=== PATIENT | female | born 1970 | race Caucasian/White ===

== ENCOUNTER 2020-10-22 11:08 | Emergency (ER) | payer BC, SELFPAY ==
--- NOTE | ~2020-10-22 | XR_ITS ---
EXAMINATION: XR chest 2V DATE: 10/22/2020 11:48 INDICATION: Cough and shortness of breath TECHNIQUE: AP and lateral views of the chest are obtained. COMPARISON: 12/25/2015 FINDINGS: The lungs are free of acute opacities. There is no pleural effusion or pneumothorax. The ca rdiomediastinal silhouette is normal. There is moderate thoracic spondylosis. Cholecystectomy clips a re noted. IMPRESSION: 1. No acute cardiopulmonary abnormality. Reviewed, dictated and finalized at location A. TE CLERK FOR BASIC TRAFFIC
[2020-10-22 11:32] VITALS: BP 134/81; PULSE 102; RESP 18; TEMP 37.3; O2SAT 100
[2020-10-22 11:37] VITALS: BP 134/81; PULSE 102; RESP 18; TEMP 37.3; O2SAT 100
--- NOTE | 2020-10-22 12:01 | ED.URI ---
HPI - URI/Sore Throat General Chief Complaint: Upper Respiratory Infection Stated Complaint: Congestion,Cough Time Seen by Provider: 10/22/20 11:40 Source: patient and RN notes reviewed Mode of arrival: ambulatory Limitations: no limitations History of Present Illness HPI Narrative: Patient presents today complaining of a 2-day history of headache, fatigue, dry cough, weakness, shortness of breath, chest tightness, rhinorrhea, sweats. Symptoms have worsened today. Daughter was diagnosed with COVID-19 4 days ago. Denies any history of asthma or COPD. Denies fever. She is a non-smoker. She has tried no medication for symptoms prior to arrival. She is an insulin-dependent diabetic. MD elicited complaint: cough Related Data Home Medications Medication Instructions Recorded Confirmed insulin aspart U-100 unit SUBCUT 10/22/20 insulin detemir U-100 [Levemir unit SUBCUT 10/22/20 FlexTouch U-100 Insuln] semaglutide [Ozempic] mg SUBCUT 10/22/20 Allergies Allergy/AdvReac Type Severity Reaction Status Date / Time No Known Allergies Allergy Unverified 04/14/15 06:12 Review of Systems Review of Systems: Narrative: CONSTITUTIONAL: Denies body aches, fever, chills. + Fatigue, weakness, sweats EYES: Denies visual changes, redness, or discharge. ENT: Denies congestion, sore throat, or otalgia. + Rhinorrhea CARDIOVASCULAR: Denies chest pain, palpitations, or edema. RESPIRATORY: + Dry cough, shortness of breath, chest tightness GASTROINTESTINAL: Denies abdominal pain, nausea, vomiting, or diarrhea. GENITOURINARY: Denies dysuria or hematuria. SKIN: Denies rash, itching, or wounds. MUSCULOSKELETAL: Denies back pain, joint pain, or myalgia. NEUROLOGIC: Denies numbness, tingling, or weakness. + Headache PSYCH: Denies depression or anxiety. [facility] Past Medical History Medical History (Updated 10/22/20 @ 12:51 by Minerva Hinton, CYBER TRANSPORT SYSTEMS SPECIALIST, ) Diabetes Comments At time of signature, I have reviewed and agree with nursing past medical, surgical, social and family history unless otherwise noted. Please see nursing chart for further information. There is no relevant family history pertinent to the presenting complaint Exam Narrative: Exam Narrative: GENERAL: Mildly ill-appearing, well-nourished, and in no acute distress. HEAD: Normocephalic, atraumatic. EYES: EOMI. No redness or drainage. Conjunctivae normal. ENT: Mucous membranes pink and moist. Nares clear. + rhinorrhea. TMs normal bilaterally. Throat normal. Uvula midline. NECK: Normal AROM. Supple. No lymphadenopathy. CHEST: No respiratory distress. Moderately decreased aeration throughout, as patient cannot take a deep breath, otherwise clear. HEART: Regular rate and rhythm. No murmur appreciated. Normal peripheral pulses. EXTREMITIES: Normal range of motion. No edema. SKIN: Warm, dry, no rash. Capillary refill normal. Normal skin turgor. NEURO: No focal deficits. Alert and oriented x3. Gait steady. PSYCH: Normal affect. No signs of depression or anxiety. Course Course Emergency Course: 1248- Increased aeration after Duoneb. Patient states she can take a bit of a deeper breath. Discussed x-ray results and plan. Vital Signs Vital signs: Vital Signs Temperature 99.2 F 10/22/20 11:32 Pulse Rate 102 H 10/22/20 11:32 Respiratory Rate 18 10/22/20 11:32 Blood Pressure 134/81 10/22/20 11:32 Pulse Oximetry 100 10/22/20 11:32 Temperature 99.2 F 10/22/20 11:37 Pulse Rate 102 H 10/22/20 11:37 Respiratory Rate 18 10/22/20 11:37 Blood Pressure 134/81 10/22/20 11:37 Pulse Oximetry 100 10/22/20 11:37 Reviewed. Pt has been instructed to follow up with her PCP regarding her elevated blood pressure today. MDM - URI/Sore Throat Differential Diagnosis Differential diagnosis: Likely upper respiratory infection, sinusitis, viral infection, bronchitis, pharyngitis and other (COVID-19, pneumonia) Lab Data Attestation: I reviewed the patient'
[2020-10-22] MEDS: ALBUTEROL SULFATE NEB 2.5 MG/3 ML INH INHALATION (12:07)
[2020-10-22] MEDS: IPRATROPIUM BR 0.02% INH SOLN 0.5 MG/2.5 ML VIAL INHALATION (12:07)
[2020-10-23 20:12] LABS: SARS-CoV-2 RNA PCR Negative
== END 2020-10-22 12:56 | disposition home or self-care (01) ==
PROVIDERS: Emergency Provider Nurse Practitioner; PCP Family Medicine
DX: J40 Bronchitis, not specified as acute or chronic (principal); J06.9 Acute upper respiratory infection, unspecified; Z20.822 Contact with and (suspected) exposure to COVID-19; E11.9 Type 2 diabetes mellitus without complications; Z79.4 Long term (current) use of insulin
CPT/HCPCS: 71046; 87426; 94640; 99213; C9803; G0463; U0003; U0005

== ENCOUNTER 2021-07-14 03:04 | Day surgery (SDC) | payer BC, SELFPAY ==
[2021-06-29 13:47] VITALS: BMI 25.7
[2021-07-14 12:30] VITALS: BP 102/65; PULSE 100; RESP 18; TEMP 36.6; O2SAT 100
[2021-07-14] MEDS: LACTATED RINGERS 1,000 ML 150 ML IV CONT (12:43)
--- NOTE | 2021-07-14 13:01 | P.PNAN_ITS ---
Anes - Initial Pre Proc Eval Procedure: Operation Date: 07/14/21 13:45 Proposed Procedures p Colonoscopy - Jamil Stephens MD Date/Time: 07/14/21 13:01 Surgeon: Jamil Stephens MD Pre Op Diagnosis: diarrhea Patient Data Age: 51 Gender: F Height: 1.6 m Weight: 64.2 kg Last Vital Signs Temp 36.6 C 07/14/21 12:30 Pulse 100 07/14/21 12:30 Resp 18 07/14/21 12:30 BP 102/65 07/14/21 12:30 Pulse Ox 100 07/14/21 12:30 Allergies Allergy/AdvReac Type Severity Reaction Status Date / Time No Known Allergies Allergy Verified 07/14/21 12:24 Home Medications Medication Instructions Recorded Confirmed Type albuterol sulfate [ProAir HFA] 2 puff INHALATION Q4-6H PRN #18 gm 10/22/20 07/14/21 Rx semaglutide [Ozempic] 1 mg SUBCUT WEEKLY 10/22/20 07/14/21 History cholestyramine (with sugar) 4 gram 4 g PO DAILY #378 g 06/09/21 07/14/21 Rx oral powder alprazolam 0.25 mg PO DAILY PRN 06/29/21 07/14/21 History Patient hx anesthesia problems: none Family hx anesthesia problems: none Results Review: All pre-operative results and documents have been reviewed as part of the pre-operative evaluation. [facility] Past Medical History Medical History (Updated 07/14/21 @ 13:03 by Gergory Blackwell MD) Anxiety Asthma Depression Diabetes Social History Social History Smoking status: Never smoker Substance use: never Living arrangements: alone Spiritual care concerns: No Anes - Eval Final PreProcedure Day of Procedure 07/14/21 13:01 Patient weight: normal Heart: regular rate and rhythm Lungs: clear to auscultation and normal air movement Airway: Mallampati scale class II Neurological: alert and oriented Last oral intake: >/= 8 hours ASA classification: III Emergent: no Anesthetic plan: proceed Anesthesia type and monitoring: general GIVS Results Review: All pre-operative results and documents have been reviewed as part of the pre-operative evaluation. Informed Consent: The patient's anesthetic plan and its attendant risks and benefits were discussed with the patient/family/POA. Questions were solicited and answers provided to the satisfaction of the patient/family/POA.
--- NOTE | 2021-07-14 13:35 | PM.HPGS ---
History of Present Illness History of Present Illness Consent: Risks, benefits, and alternatives have been discussed and questions answered. Patient agrees to proceed with procedure. Chief complaint: diarrhea Narrative: Rowena Ramos is a 51 year old female with post-prandial diarrhea recently started on questran with some relief, never had colonoscopy. Review of Systems Constitutional: Constitutional: Denies headache(s) and Denies weakness Eyes: Eyes: Denies blurry vision ENT: Reports Normal hearing present, Denies headache(s) and Denies neck pain Cardiovascular: Cardiovascular: Denies chest pain and Denies dyspnea Respiratory: Respiratory: Denies dyspnea Gastrointestinal: Gastrointestinal: Reports no additional gastrointestinal complaints Genitourinary: Genitourinary: Denies dysuria Musculoskeletal: Musculoskeletal: Denies neck pain Integumentary/Breasts: Skin/Breast: Denies dry skin Neurologic: Reports Normal hearing present, Denies headache(s) and Denies weakness Psychiatric: Psychiatric: Denies anxiety Endocrine: Endocrine: Denies change in body appearance Hematologic/Lymphatic: Hematologic/Lymphatic: Denies easy bleeding Allergic/Immunologic: Allergic/Immunologic: Denies urticaria PMF Past Medical History Medical History (Updated 07/14/21 @ 13:35 by Jamil Stephens MD) Anxiety Asthma Depression Diabetes Diarrhea Social History Social History Smoking status: Never smoker Substance use: never Living arrangements: alone Spiritual care concerns: No Meds Home Medications and Allergies Home Medications Medication Instructions Recorded Confirmed Type albuterol sulfate [ProAir HFA] 2 puff INHALATION Q4-6H PRN #18 gm 10/22/20 07/14/21 Rx semaglutide [Ozempic] 1 mg SUBCUT WEEKLY 10/22/20 07/14/21 History cholestyramine (with sugar) 4 gram 4 g PO DAILY #378 g 06/09/21 07/14/21 Rx oral powder alprazolam 0.25 mg PO DAILY PRN 06/29/21 07/14/21 History Allergies Allergy/AdvReac Type Severity Reaction Status Date / Time No Known Allergies Allergy Verified 07/14/21 12:24 Vital Signs Vital Signs - 24 hr 07/14/21 12:30 Temperature 97.8 F Pulse Rate 100 Respiratory Rate 18 Blood Pressure 102/65 Pulse Oximetry 100 Exam Const: General: comfortable and no acute distress HENMT: General nose exam: Normal nares present Eyes: General: appearance normal, both eyes and all related structures Neck: Neck: no JVD Resp: Auscultation: clear to auscultation bilaterally Cardio: Rate: regular rate Rhythm: regular rhythm GI: Inspection: non-distended GI Palp: Yes Soft to palpation Skin: General skin exam: normal color Neuro: General: gait normal Speech: normal speech Extrem: General: normal to inspection Psych: Mental Status: mental status grossly normal Assessment and Plan Assessment and plan (1) Diarrhea: Code(s): R19.7 - Diarrhea, unspecified Status: Acute Assessment and Plan: colonoscopy with random colon bx
[2021-07-14 13:56] VITALS: BP 82/41; PULSE 86; RESP 16; O2SAT 100
[2021-07-14 14:06] VITALS: BP 98/59; PULSE 84; RESP 15; O2SAT 100
[2021-07-14 14:16] VITALS: BP 113/73; PULSE 85; RESP 16; O2SAT 100
== END 2021-07-14 14:36 | disposition home or self-care (01) ==
PROVIDERS: PCP Family Medicine; Visit Provider Internal Medicine Gastroenterology
PROC: 0DJD8ZZ Inspection of Lower Intestinal Tract, Via Natural or Artificial Opening Endoscopic (ICD-10-PCS; CPT 45378; principal; 2021-07-14 13:45)
DX: Z12.11 Encounter for screening for malignant neoplasm of colon (principal); K57.30 Diverticulosis of large intestine without perforation or abscess without bleeding; K64.8 Other hemorrhoids; F41.9 Anxiety disorder, unspecified; J45.909 Unspecified asthma, uncomplicated; E11.9 Type 2 diabetes mellitus without complications; Z79.51 Long term (current) use of inhaled steroids
CPT/HCPCS: 45380; 88305; J2704; J7120

== ENCOUNTER 2022-07-17 09:28 | Observation (INO) | payer BC, SELFPAY ==
[2022-07-17] VITALS (28 sets, daily range): BP systolic 92–156; BP diastolic 62–106; PULSE 87–99; RESP 10–22; TEMP 36.6–36.8; O2SAT 96–100
--- NOTE | ~2022-07-17 | CT_ITS ---
EXAMINATION: CT brain wo con INDICATION: Head injury COMPARISON: None TECHNIQUE: Standard unenhanced head CT. The dose-length product (DLP) was 605.33 mGy-cm. The mA was a djusted according to patient size. Iterative reconstruction technique was employed. FINDINGS: There is no intracranial hemorrhage, acute infarction, or abnormal mass lesion. The ventric les are normal. There is no abnormal mass effect or midline shift. The levin-white matter differentiat ion is normal. The basal cisterns are patent. The orbits are normal. There is mild mucosal thickening of the paranasal sinuses. There is a small left posterior scalp hematoma. IMPRESSION: 1. No acute intracranial abnormality. Reviewed, dictated and finalized at location A. ENGINEERING TEACHER
--- NOTE | ~2022-07-17 | XR_ITS ---
EXAMINATION: XR chest 1V INDICATION: Fall, weakness TECHNIQUE: AP view of the chest is obtained. COMPARISON: 10/22/2020 FINDINGS: The lungs are free of acute opacities. No pleural effusion or pneumothorax. The cardiomedia stinal silhouette is normal. The visualized bones and soft tissues are unremarkable. IMPRESSION: 1. No acute cardiopulmonary abnormality. Reviewed, dictated and finalized at location A. M PRESSER
--- NOTE | ~2022-07-17 | CT_ITS ---
CTA brain carotid EXAMINATION: CTA brain DATE: 07/17/2022 11:03 INDICATION: Left-sided weakness TECHNIQUE: Computed tomographic angiography (CTA) of the head was performed without and with 100 mL O mnipaque-350 intravenous contrast. The dose-length product was 419.37 mGy-cm. Maximum intensity proje ction and volume rendered 3D-reconstructions were created by the technologist on a separate workstati on. Automated exposure control and iterative reconstruction technique were employed. COMPARISON: None. FINDINGS: There is no intracranial hemorrhage, acute infarction, or abnormal mass lesion. The ventricles are no rmal. There is no abnormal mass effect or midline shift. The levin-white matter differentiation is nor mal. The basal cisterns are patent. The orbits are normal. The paranasal sinuses, mastoids and calvar ium are normal. There is no significant stenosis of the basilar artery or posterior cerebral arteries. There is no si gnificant stenosis of the intracranial internal carotid arteries or the anterior or middle cerebral a rteries. The anterior communicating artery and right posterior communicating arteries are normal. The left posterior communicating artery is hypoplastic. There is no aneurysm. IMPRESSION: 1. No acute intracranial abnormality. Unremarkable head CTA. Reviewed, dictated and finalized at location A. WAY YARD ASSISTANT
--- NOTE | ~2022-07-17 | CT_ITS ---
EXAMINATION: CT cervical spine wo con DATE: 07/17/2022 10:32 INDICATION: Head injury TECHNIQUE: Computed tomography (CT) of the cervical spine was performed without intravenous contrast. The dose-length product (DLP) was 179.10 mGy-cm. Automated exposure control and iterative reconstruc tion technique were employed. COMPARISON: None FINDINGS: There is no fracture, dislocation, or subluxation. The vertebral body heights, alignment, a nd intervertebral disc spaces are normal. The paravertebral soft tissues are unremarkable. The odonto id is intact. IMPRESSION: 1. No acute osseous abnormality. Reviewed, dictated and finalized at location A. OLLER
--- NOTE | ~2022-07-17 | MR_ITS ---
EXAMINATION: MR cervical spine wo con DATE: 07/19/2022 17:43 INDICATION: Neurological deficits. Left hemiparesis. TECHNIQUE: Magnetic resonance imaging (MRI) of the cervical spine was performed without intravenous c ontrast. Sequences included sagittal T2-weighted FSE, sagittal T2-weighted FS FSE, sagittal T1-weight ed FSE, axial MERGE, and axial T2-weighted FSE. COMPARISON: CT cervical spine 07/17/2022 FINDINGS: There is 6 degrees dextrocurvature of cervical spine. Vertebral body heights and interverte bral disc heights are normal. The spinal cord signal intensity is normal. The following disc levels a re specifically discussed: C2-C3: The disc does not extend beyond the endplate margin. There is no uncovertebral joint osteoarth ritis. There is mild bilateral facet joint osteoarthritis. There is no neural foraminal stenosis. The re is no central canal stenosis. C3-C4: The disc does not extend beyond the endplate margin. There is mild bilateral uncovertebral mason nt osteoarthritis. There is no facet joint osteoarthritis. There is no neural foraminal stenosis. The re is no central canal stenosis. C4-C5: The disc does not extend beyond the endplate margin. There is mild left uncovertebral joint os teoarthritis. There is no facet joint osteoarthritis. There is no neural foraminal stenosis. There is no central canal stenosis. C5-C6: The disc is bulging. There is mild bilateral uncovertebral joint osteoarthritis. There is mild left facet joint osteoarthritis. There is no neural foraminal stenosis. There is mild central canal stenosis. C6-C7: There is a central extrusion. There is no uncovertebral joint osteoarthritis. There is mild bi lateral facet joint osteoarthritis. There is no neural foraminal stenosis. There is mild central brittany l stenosis. C7-T1: There is a central extrusion. There is no uncovertebral joint osteoarthritis. There is severe bilateral facet joint osteoarthritis. There is mild bilateral neural foraminal stenosis. There is mil d central canal stenosis. IMPRESSION: 1. Mild cervical spondylosis. Reviewed, dictated and finalized at location A. STANT PROFESSOR
--- NOTE | ~2022-07-17 | MR_ITS ---
EXAMINATION: MR brain/brain stem wo/w con DATE: 07/18/2022 10:33 INDICATION: Left hemiparesis. TECHNIQUE: Magnetic resonance imaging (MRI) of the brain and brainstem was performed without and with 13 mL MultiHance intravenous contrast. COMPARISON: Head CT 07/17/2022 FINDINGS: There is no intracranial hemorrhage, acute infarction, or abnormal intracranial mass lesion . The ventricles are normal in size. There is mucosal thickening in the paranasal sinuses. The orbits are normal. The mastoid air cells are normal. IMPRESSION: 1. Normal brain. Reviewed, dictated and finalized at location E. H UP WORKER IMPRESSION: 1. Normal brain.
--- NOTE | 2022-07-17 10:00 | ECG_ITS ---
Measurements Intervals [place] Rate: 87 P: 45 IL: 153 QRS: 10 QRSD: 92 T: 56 QT: 363 QTc: 437 Interpretive Statements SINUS RHYTHM INCOMPLETE RIGHT BUNDLE BRANCH BLOCK LOW QRS VOLTAGE IN PRECORDIAL LEADS BASELINE ARTIFACT- II, III BORDERLINE ECG NO PREVIOUS ECG AVAILABLE FOR COMPARISON Electronically Signed On 07-17-2022 14:55:53 ASSISTANT GUEST SERVICES MANAGER by Pritesh Camacho D.O.
--- NOTE | 2022-07-17 10:08 | ED.FALL ---
HPI - Fall General Chief Complaint: Fall Stated Complaint: GLF HIT HEAD ON WALL LAC TOP OF HEAD Time Seen by Provider: 07/17/22 09:37 History of Present Illness HPI Narrative: 52-year-old female history of diabetes anxiety depression, asthma presents to the emergency room for head injury following a fall. Patient states that she was stepping up a step, she laid with her right foot and was unable to bring her left foot forward to continue stepping upwards. Patient states after missing her step she fell backwards striking the back of her head. Patient denies any LOC or altered mental status. Patient was not ambulatory following the injury. Patient presented to the ER via EMS c-collar in place Related Data Home Medications Medication Instructions Recorded Confirmed semaglutide 0.25 mg or 0.5 mg (2 1 mg subcut WEEKLY 10/22/20 11/12/21 mg/1.5 mL) subcutaneous pen injector (Ozempic) Allergies Allergy/AdvReac Type Severity Reaction Status Date / Time No Known Allergies Allergy Verified 07/17/22 09:45 Review of Systems Review of Systems: CONSTITUTIONAL: Denies fever, chills, or sweats. EYES: Denies visual changes, redness, or discharge. ENT: Denies rhinorrhea, congestion, sore throat, or otalgia. CARDIOVASCULAR: Denies chest pain, palpitations, or edema. RESPIRATORY: Denies cough or dyspnea. GASTROINTESTINAL: Denies abdominal pain, nausea, vomiting, or diarrhea. GENITOURINARY: Denies dysuria or hematuria. SKIN: Denies rash or itching. MUSCULOSKELETAL: Denies back pain, joint pain, or myalgia. NEUROLOGIC: Reports headache PSYCHIATRIC: Reports anxiety PMFSH Past Medical History Medical History Anxiety Asthma Colon cancer screening Depression Diabetes Diabetes mellitus type 1, uncontrolled Diarrhea Dysphagia Gastroparesis Irritable bowel syndrome with diarrhea Neuropathy Uncontrolled diabetes mellitus Social History Social History Smoking status: Never smoker Substance use: never Spiritual care concerns: No Exam Narrative: GENERAL: Well-appearing, well-nourished, no physical limitations, and in no acute distress. HEAD: Normocephalic, scalp laceration EYES: Conjunctivae normal, PERRLA and EOMI. ENT: External nose normal, Nares clear, no rhinorrhea or epistaxis. Mucous membranes moist. Oropharynx without tonsillar hypertrophy exudate or other lesions. External ears normal, bilateral TMs normal bilaterally NECK: Supple. CHEST: Clear to auscultation. No respiratory distress. No wheezes rales or rhonchi. HEART: Regular rate and rhythm. No murmur heard. Normal peripheral pulses. ABDOMEN: Soft, nontender, nondistended, normal active bowel sounds. BACK: No midline cervical tenderness, step-offs, bony abnormality; FROM EXTREMITIES: Normal range of motion. No edema. No clubbing or cyanosis SKIN: Warm, dry, no rash. No noted wounds NEURO: Alert and oriented x3. MAEW. CN's II-XI intact bilaterally. LLE Strength 4/5, LUE Strength 4/5 PSYCH: Cooperative. Normal mood and affect. Course Course Emergency Course: 1045: Discussed case with Dr. Díaz neurologist. She recommends getting a CTA for further examination. Also recommends if patient has a candidate for tPA to transfer or to a stroke center. 1100: Discussed case with Dr. Melendez, neurologist at [facility]. He states patient is not a candidate for tPA. Vital Signs Vital signs: Vital Signs Temperature 36.8 C 07/17/22 09:34 Pulse Rate 90 07/17/22 09:34 Respiratory Rate 18 07/17/22 09:34 Blood Pressure 150/85 H 07/17/22 09:34 Pulse Oximetry 100 07/17/22 09:34 Oxygen Delivery Room Air 07/17/22 09:34 Temperature 36.8 C 07/17/22 09:34 Pulse Rate 94 07/17/22 12:31 Respiratory Rate 17 07/17/22 12:31 Blood Pressure 150/98 H 07/17/22 12:31 Pulse Oximetry 98 07/17/22 12:31 Oxygen Delivery Room Air 07/17/22
[2022-07-17 10:24] LABS: Basophils Absolute Auto 0.1 K/mm3 (0.0-0.1); Eosinophils Absolute Auto 0.2 K/mm3 (0-0.3); Eosinophils Percent Auto 2.8 % (0-4.4); Hematocrit 36.6 % (37.0-47.0); Immature Granulocyte Absolute 0.01 K/mm3 (0.00-0.031); Immature Granulocyte Percent A 0.1 % (0-0.5); Lymphocytes Absolute Auto 1.84 K/mm3 (0.9-3.2); Lymphocytes Percent Auto 27.4 % (18.3-44.2); Mean Corpuscular HGB Conc 32.8 g/dl (32-36); Mean Corpuscular Hemoglobin 29.5 pg (26-34); Mean Corpuscular Volume 89.9 fl (80-100); Mean Platelet Volume 9.3 fl (7.4-10.4); Monocytes Absolute Auto 0.4 K/mm3 (0.1-0.6); Neutrophils Absolute Auto 4.2 K/mm3 (1.3-6.7); Neutrophils Percent Auto 62.7 % (45.5-73.1); Platelet Count Result 233 k/mm3 (150-375); Red Blood Count 4.07 M/mm3 (4.2-5.4); Red Cell Distribution Width 13.4 % (11.5-14.5); White Blood Count 6.7 K/mm3 (4.5-10.0)
[2022-07-17 10:36] LABS: Alanine Aminotransferase 25 U/L (6-35); Albumin Level 4.1 g/dL (3.5-5.1); Alkaline Phosphatase 59 U/L (38-126); Anion Gap 10 mmol/L (8-16); Aspartate Amino Transferase 43 U/L (14-36); Bilirubin,Total 0.5 mg/dL (0.2-1.3); Blood Urea Nitrogen 13 mg/dL (7-17); Calcium 8.7 mg/dL (8.4-10.2); Carbon Dioxide 30 mmol/L (22-30); Chloride 102 mmol/L (98-107); Estimated CRCL calculation 67 ml/min; Estimated Glomerular Filt Rate > 60; Glucose 100 mg/dL (65-110); Potassium 3.8 mmol/L (3.4-5.0); Sodium 142 mmol/L (137-145)
[2022-07-17 10:42] LABS: Prothrombin Time 12.9 Seconds (11.1-14.7)
[2022-07-17 10:47] LABS: Troponin I < 0.012 ng/mL (0.000-0.034)
[2022-07-17 11:53] LABS: Influenza A QL RT-PCR Negative (Negative); Influenza B QL RT-PCR Negative (Negative); SARS-CoV-2 RNA PCR Negative
[2022-07-17] MEDS: SODIUM CHLORIDE 0.9% IV 1,000 ML 125 ML IV CONT (12:11)
[2022-07-17] MEDS: MORPHINE SULFATE (*CRX) 2 MG/ML INJ IV PUSH (12:11)
[2022-07-17] MEDS: ONDANSETRON INJ 4 MG/2 ML VIAL IV PUSH (12:11)
[2022-07-17] MEDS: MORPHINE SULFATE (*CRX) 4 MG/ML INJ IV PUSH (13:54)
--- NOTE | 2022-07-17 14:15 | PM.IMHP ---
H&P: HPI History of Present Illness Date/Time: 07/17/22 14:15 Chief Complaint: Fall. Narrative: This is a 52-year-old female with type 2 diabetes mellitus with peripheral neuropathy who presented to the ED via EMS for evaluation after a fall while trying to walk up a few steps at [facility]. She had difficulties raising her left leg up onto the step as it felt heavy and weak. She then became unbalanced and unfortunately was not near the hand rail and she fell backwards onto the hard floor where she did strike the top of her head. Bystanders called 911 and she was brought in for evaluation and aside from a slightly elevated blood pressure 150/85, her vital signs were normal. Labs and imaging of the CT of the head, cervical spine, and CTA brain angiography were all unremarkable. On exam she had mild left leg drift and ataxia with an NIH stroke scale of 2. Case was discussed with the stroke team at [facility] and tPA was not recommended. She is being admitted to a telemetry for in this setting for close monitoring, further evaluation, and Neurology consultation. Currently she complains of a diffuse headache which has been since the fall. She denies loss of consciousness in the fall though she is uncertain whether not she had prodromal symptoms. She goes on to say that she has had issues with orthostatic hypotension since June 2021 and in fact she was evaluated by Cardiology for this. Workup was reportedly unremarkable and she has been trying to stay more hydrated since that time with less frequent episodes more recently. She denies vertigo, auditory and visual changes, facial droop, dysarthria, and dysphagia. She also denies palpitations, sensations of racing heart, and irregular heartbeat. She denies sustaining injuries in the fall aside from the scalp laceration. She specifically denies neck pain, shoulder pain, hip pain, low back pain, left leg pain. Review of Systems Review of Systems: Twelve systems were reviewed. She has lost about 100 pounds in the last 5 years or so. She was able to get off of insulin and now she is only on Ozempic. She wears a continuous glucose monitor and believes that her diabetes is pretty well controlled. She has chronic peripheral neuropathy in her lower legs almost up to the knees bilaterally. She has occasional neuropathy symptoms in her hands. It sounds as though she does have diabetic retinopathy and she had some injections in her eyes done previously. She also recently had LASIK eye surgery. Appetite has been good. No nausea or vomiting. She has frequent loose stools and in fact had a colonoscopy not too long ago for evaluation of that which was reportedly unremarkable. No joint pain or deformities. She denies loss of consciousness in the fall. Except as documented, all other systems were reviewed and are negative. REPLACED BY [facility] Past Medical History Medical History (Updated 07/17/22 @ 18:44 by Noris Mesa PA-C) Anxiety Asthma Cervical spine fracture C4-C5 fracture at age 3. No surgical intervention needed. Depression Gastroparesis Irritable bowel syndrome with diarrhea Kidney stone Neuropathy Type 2 diabetes mellitus Surgical History Surgical History (Updated 07/17/22 @ 18:37 by Noris Mesa PA-C) History of section History of cholecystectomy History of cystoscopy History of tonsillectomy Family History Family History Father Diabetes mellitus Cerebrovascular accident Mother Diabetes mellitus Social History Social History (Updated 07/17/22 @ 18:38 by Noris Mesa PA-C) Social History: Code status: Full code. Smoking status: Never smoker Second hand tobacco smoke exposure: No Alcohol intake: never Substance use: never Lack of Transportation: No Lack of Food: Never True Current Housing: I Have Housing Concerned About Future Housing: No Difficulty Paying Gas/Electric Bills: No Difficulty Paying for
[2022-07-17] MEDS: HYDROcodone/acetaminophen (*CRX) 5-325 MG TABLET 1 TAB PO (17:09)
[2022-07-17 17:28] LABS: Glucose Point of Care 140 mg/dl (65-105)
[2022-07-17 20:46] LABS: Glucose Point of Care 138 mg/dl (65-105)
[2022-07-18] VITALS (9 sets, daily range): BP systolic 96–134; BP diastolic 54–78; PULSE 72–87; RESP 16–21; TEMP 36.1–36.6; O2SAT 98–100
[2022-07-18] MEDS: HYDROcodone/acetaminophen (*CRX) 5-325 MG TABLET 1 TAB PO ×3 (00:20→20:12)
[2022-07-18 05:47] LABS: Anion Gap 6 mmol/L (8-16); Blood Urea Nitrogen 12 mg/dL (7-17); Calcium 7.6 mg/dL (8.4-10.2); Carbon Dioxide 28 mmol/L (22-30); Chloride 104 mmol/L (98-107); Cholesterol 128 mg/dL (0-200); Estimated CRCL calculation 87 ml/min; Estimated Glomerular Filt Rate > 60; Glucose 88 mg/dL (65-110); HDL Direct 50 mg/dL; Hemoglobin A1C 5.4 % (<5.7); Magnesium 1.7 mg/dL (1.6-2.3); Potassium 3.2 mmol/L (3.4-5.0); Sodium 138 mmol/L (137-145); Triglycerides 68 mg/dL (<150)
[2022-07-18 05:58] LABS: LDL Cholesterol Direct 56 mg/dL
[2022-07-18] MEDS: MAGNESIUM SULF 2 GM/WATER 50ML 2 GM/50 ML BAG IVPB (08:27)
[2022-07-18] MEDS: ASPIRIN 81 MG CHEWABLE TABLET PO (08:27)
[2022-07-18] MEDS: POTASSIUM CHLORIDE 20 MEQ TABLET PO (08:27)
[2022-07-18 09:29] LABS: Glucose Point of Care 77 mg/dl (65-105)
[2022-07-18 09:45] LABS: Albumin Level 2.9 g/dL (3.5-5.1)
[2022-07-18 11:40] LABS: Glucose Point of Care 180 mg/dl (65-105)
--- NOTE | 2022-07-18 14:46 | PM.IMPN ---
Progress Note: A&P Assessment and Plan (1) Fall from steps: Code(s): W10.9XXA - Fall (on) (from) unspecified stairs and steps, initial encounter Status: Acute Assessment and Plan: Patient fell backwards down steps, reportedly due to leg weakness/heaviness. No loss of consciousness. Denies precipitating symptoms. No injuries noted on head CT. Implement fall precautions. (2) Superficial laceration of scalp: Code(s): S01.01XA - Laceration without foreign body of scalp, initial encounter Status: Acute Assessment and Plan: Secondary to fall as above (3) Left leg weakness: Code(s): R29.898 - Other symptoms and signs involving the musculoskeletal system Status: Acute Assessment and Plan: Etiology unclear. Associated with other vague neurological complaints of unclear significance (see HPI for details). Head CT and cervical spine CT with no acute findings, CTA with no significant stenosis, and brain MRI is normal. Appreciate Neurology consultation and recommendations. Continue aspirin 81 mg daily (4) Type 2 diabetes mellitus: Code(s): E11.9 - Type 2 diabetes mellitus without complications Status: Acute Assessment and Plan: A1c is 5.4. Patient is maintained on home Ozempic. Continue Accu-Cheks, sliding scale insulin, hypoglycemic protocol (5) Electrolyte abnormality: Code(s): E87.8 - Other disorders of electrolyte and fluid balance, not elsewhere classified Status: Acute Assessment and Plan: Potassium is 3.2 and patient has received 20 mEq p.o. KCl. Magnesium is 1.7 and patient has received 2 g magnesium sulfate. Continue to monitor electrolytes Subjective Date/time seen: 07/18/22 14:46 Interval history: Date of service: 07/18/2022 Rowena Ramos is a 52-year-old female with a history of anxiety, depression, asthma, cervical spine fracture, type 2 diabetes mellitus with associated gastroparesis and neuropathy IBS, and kidney stones who is seen in follow-up after a fall. Patient was climbing up stairs when she felt her left leg become heavy and she had trouble lifting it, she fell backwards and hit her head. She does not believe she lost consciousness does have some difficulty remembering all the events, stating she was ?stunned.? At this time she complains of a headache in both the frontal and occipital region that she rates as 7/10, stating it is like a balloon blown up in her head. She denies visual changes, but does note that she had laser eye surgery several weeks ago and has had some visual disturbances related to this. She denies dysphagia. Denies speech changes. Endorses chronic neuropathy in her bilateral lower extremities but denies any numbness or tingling of her bilateral upper extremities. States that her left leg feels heavy. She does endorse a history of orthostatic hypotension, but states that she has not had any issues recently. She did notice today that she became slightly dizzy upon standing when she got up rather briskly. At rest, she does feel lightheaded. Last night, she woke up with charley horses in her calves. She denies shortness of breath. No palpitations. Endorses intermittent cough. Also endorses chest tightness which she attributes to anxiety. She states that she lost her 7 years ago around this time, therefore this is always a difficult season for her, +being in the hospital is causing some stress. Additionally, she states that she is slightly nervous about having an MRI. The patient does note later that she has noticed for about 6 months a twitching like tremor in her left thumb and index finger that happens intermittently, not brought on by activity. At first she thought this was from maybe texting too much and did not think anything of it but now that she is having the leg symptoms, she is concerned because both symptoms are on the left side and she wonders if they are related.
[2022-07-18] MEDS: ACETAMINOPHEN 325 MG TABLET 650 MG PO (15:37)
[2022-07-18 20:12] LABS: Glucose Point of Care 144 mg/dl (65-105)
[2022-07-19] VITALS (17 sets, daily range): BP systolic 102–152; BP diastolic 55–85; PULSE 77–97; RESP 18–21; TEMP 36.1–36.7; O2SAT 96–100
[2022-07-19] MEDS: traMADol HCL (*CRX) 25 MG TABLET PO (00:51)
[2022-07-19 03:03] LABS: Glucose Point of Care 96 mg/dl (65-105)
[2022-07-19 06:58] LABS: Alanine Aminotransferase 19 U/L (6-35); Albumin Level 3.3 g/dL (3.5-5.1); Alkaline Phosphatase 52 U/L (38-126); Anion Gap 5 mmol/L (8-16); Aspartate Amino Transferase 24 U/L (14-36); Bilirubin,Total 0.4 mg/dL (0.2-1.3); Blood Urea Nitrogen 10 mg/dL (7-17); Calcium 7.5 mg/dL (8.4-10.2); Carbon Dioxide 29 mmol/L (22-30); Chloride 103 mmol/L (98-107); Estimated CRCL calculation 100 ml/min; Estimated Glomerular Filt Rate > 60; Glucose 86 mg/dL (65-110); Potassium 3.7 mmol/L (3.4-5.0); Sodium 137 mmol/L (137-145)
[2022-07-19 08:28] LABS: Folic Acid > 20.0 ng/mL (2.76->20)
[2022-07-19] MEDS: ASPIRIN 81 MG CHEWABLE TABLET PO (08:30)
[2022-07-19] MEDS: HYDROcodone/acetaminophen (*CRX) 5-325 MG TABLET 1 TAB PO ×2 (08:30→22:00)
[2022-07-19 09:18] LABS: Glucose Point of Care 88 mg/dl (65-105)
[2022-07-19 12:21] LABS: Glucose Point of Care 95 mg/dl (65-105)
[2022-07-19] MEDS: ACETAMINOPHEN 325 MG TABLET 650 MG PO (13:19)
--- NOTE | 2022-07-19 15:07 | ECHO_ITS ---
Patient Info Name: Rowena Ramos Age: 52 years : 1970 Gender: Female Ht: 63 in Wt: 147 lbs BSA: 1.74 m2 HR: 77 bpm BP: 109 / 62 mmHg Technical Quality: Good Exam Date: 07/19/2022 10:51 AM Exam Location: [facility] Pulmonary Exam Room: 253 Patient Status: Outpatient Admit Date: 07/17/2022 Staff Ordering Physician: Noris Mesa PA-C Neonatal Nurse: Nneka Be RCS Attending Provider: Shira Velazquez PA-C Referring Physician: Moshe VELÁSQUEZ; Exam Type: CA echo doppler color flow Study Info Indications - STROKE SYMPTOMS Complete two-dimensional, color flow and Doppler transthoracic echocardiogram is performed. Summary 1. Complete two-dimensional, color flow and Doppler transthoracic echocardiogram is performed. 2. Left ventricular chamber dimension is normal. 3. Left ventricular systolic function is normal, estimated at 60-65%. 4. The left ventricular diastolic function is abnormal. 5. E/e' 12 is mildly elevated. 6. Left atrial chamber dimension is mildly enlarged. 7. There is trace tricuspid valve regurgitation. 8. No pulmonary hypertension, estimated pulmonary arterial systolic pressure is 32 mmHg. Left Ventricle E/e' 12 is mildly elevated. Left ventricular chamber dimension is normal. Left ventricular systolic function is normal, estimated at 60-65%. The left ventricular diastolic function is abnormal. Right Ventricle Right ventricular chamber dimension is normal. Right ventricular systolic function is normal. Left Atria Left atrial chamber dimension is mildly enlarged. Right Atria Right atrial chamber dimension is normal. Aortic Valve The aortic valve is trileaflet. There is no aortic valve stenosis. There is no aortic valve regurgitation. Pulmonic Valve There is no pulmonic regurgitation. Mitral Valve There is no mitral valve stenosis. There is no mitral valve regurgitation. Tricuspid Valve There is trace tricuspid valve regurgitation. No pulmonary hypertension, estimated pulmonary arterial systolic pressure is 32 mmHg. Pericardium/Pleural There is no pericardial effusion. Inferior Vena Cava Normal inferior vena cava with >50% collapse upon inspiration consistent with normal right atrial pressure, 5 mmHg. Aorta The aortic root size at the sinus of Valsalva is normal. Left Ventricular Outflow Tract Name Value Normal LVOT 2D LVOT Diameter 2.0 cm LVOT Doppler LVOT Peak Gradient 4 mmHg LVOT Mean Gradient 3 mmHg LVOT VTI 21 cm LVOT VTI/AV VTI Ratio 0.8 LVOT Stroke Volume 63 ml LVOT CO 13.9 l/min LVOT CI 8.0 l/min/m2 Pulmonic Valve Name Value Normal PV Doppler PV Pe
--- NOTE | 2022-07-19 16:30 | PM.IMPN ---
Progress Note: A&P Assessment and Plan (1) Fall from steps: Code(s): W10.9XXA - Fall (on) (from) unspecified stairs and steps, initial encounter Status: Acute Assessment and Plan: Patient fell backwards down steps, reportedly due to leg weakness/heaviness. No loss of consciousness. Denies precipitating symptoms. No injuries noted on head CT. Implement fall precautions. (2) Superficial laceration of scalp: Code(s): S01.01XA - Laceration without foreign body of scalp, initial encounter Status: Acute Assessment and Plan: Secondary to fall as above (3) Left leg weakness: Code(s): R29.898 - Other symptoms and signs involving the musculoskeletal system Status: Acute Assessment and Plan: Etiology unclear. Associated with other vague neurological complaints of unclear significance (see HPI for details). Head CT and cervical spine CT with no acute findings, CTA with no significant stenosis, and brain MRI is normal. Appreciate Neurology consultation and recommendations. Continue aspirin 81 mg daily. Will proceed with MRI of cervical spine today Per neurology recommendations (4) Type 2 diabetes mellitus: Code(s): E11.9 - Type 2 diabetes mellitus without complications Status: Acute Assessment and Plan: A1c is 5.4. Patient is maintained on home Ozempic. Continue Accu-Cheks, sliding scale insulin, hypoglycemic protocol during admission (5) Electrolyte abnormality: Code(s): E87.8 - Other disorders of electrolyte and fluid balance, not elsewhere classified Status: Acute Assessment and Plan: resolved. Potassium and magnesium within normal limits today. Plan Orthostatic vital signs negative today. B12 and folate within normal limits. TSH is pending Subjective Date/time seen: 07/19/22 16:30 Interval history: Date of service: 07/19/2022 Rowena Ramos is a 52-year-old female with a history of anxiety, depression, asthma, cervical spine fracture, type 2 diabetes mellitus with associated gastroparesis and neuropathy, IBS, and kidney stones who is seen in follow-up after a fall. Patient was climbing up stairs when she felt her left leg become heavy and she had trouble lifting it, she fell backwards and hit her head. She complains of headache that is persistent today. Describes as a pressure-like sensation in the frontal and occipital region. She is able to move her left leg but continues to describe heaviness sensation and having trouble lifting her leg. States she is having to think harder about completing the movements. Endorses some mental fogginess. Denies visual changes or speech changes. Denies nausea, vomiting, fever, chills, shortness of breath, cough, chest pain. Did have some dizziness upon standing today. Appetite is fair. Review of Systems Review of Systems: All systems reviewed & are unremarkable except as noted in HPI and below Exam Narrative: General: Well-nourished, well-appearing 52-year-old female, sitting up in bed, comfortable, NARD Neuro: awake, alert and oriented x4, speech clear, no focal neuro deficits noted HEENMT: normocephalic, atraumatic, EOMI, sclerae anicteric Respiratory: clear to auscultation bilaterally, nonlabored breathing Cardio: regular rate, regular rhythm with S1-S2 Abdomen: nondistended, normoactive bowel sounds, soft, nontender to palpation Extremities: no edema, erythema, or tenderness to palpation, DP pulses 2+ bilaterally Skin: no rashes or lesions, warm and dry Psych: appropriate mood and affect, judgment and insight intact Objective Data Vital Signs Vital Signs: Vital Signs - 24 hr 07/18/22 20:30 07/18/22 20:30 07/18/22 20:35 Temperature 97.0 F L 97.0 F L 97.3 F L Pulse Rate 83 83 82 Respiratory Rate 21 H 21 H 21 H Blood Pressure 119/70 119/70 134/78 Pulse Oximetry 100 100 100 Oxygen Delivery 07/18/22 20:40 07/18/22 20:00 07/19/22 00:46 Temp
[2022-07-19] MEDS: ACETAMINOPHEN/ASPIRIN/CAFFEINE 250-250-65 MG TABLET 1 TABLET PO (17:03)
[2022-07-19 18:08] LABS: Glucose Point of Care 120 mg/dl (65-105)
[2022-07-19 22:03] LABS: Glucose Point of Care 140 mg/dl (65-105)
[2022-07-20] VITALS (9 sets, daily range): BP systolic 93–128; BP diastolic 59–77; PULSE 82–92; RESP 18–20; TEMP 36.3–36.7; O2SAT 98–100
[2022-07-20] MEDS: ACETAMINOPHEN 325 MG TABLET 650 MG PO ×2 (01:50→13:46)
[2022-07-20 06:01] LABS: Anion Gap 8 mmol/L (8-16); Blood Urea Nitrogen 11 mg/dL (7-17); Calcium 7.7 mg/dL (8.4-10.2); Carbon Dioxide 29 mmol/L (22-30); Chloride 103 mmol/L (98-107); Estimated CRCL calculation 88 ml/min; Estimated Glomerular Filt Rate > 60; Glucose 97 mg/dL (65-110); Magnesium 1.8 mg/dL (1.6-2.3); Potassium 3.6 mmol/L (3.4-5.0); Sodium 140 mmol/L (137-145)
[2022-07-20 06:10] LABS: Hemoglobin 10.8 g/dL (12.0-15.0); Mean Corpuscular HGB Conc 32.7 g/dl (32-36); Mean Corpuscular Hemoglobin 28.6 pg (26-34); Mean Corpuscular Volume 87.3 fl (80-100); Mean Platelet Volume 9.8 fl (7.4-10.4); Platelet Count Result 228 k/mm3 (150-375); Red Blood Count 3.78 M/mm3 (4.2-5.4); Red Cell Distribution Width 13.1 % (11.5-14.5); White Blood Count 10.4 K/mm3 (4.5-10.0)
[2022-07-20] MEDS: ASPIRIN 81 MG CHEWABLE TABLET PO (08:08)
[2022-07-20 08:53] LABS: Glucose Point of Care 95 mg/dl (65-105)
[2022-07-20 12:32] LABS: Glucose Point of Care 193 mg/dl (65-105)
[2022-07-20 14:06] LABS: Appearance Urine Clear (Clear); Bilirubin Urine Negative (Negative); Blood Urine 3+ (Negative); Color Urine Yellow (Yellow); Glucose Urine UA Negative (Negative); Ketones Urine Negative (Negative); Leukocyte Esterase Ur 1+ LEU/UL (Negative); Nitrate Urine Negative (Negative); Protein Urine 2+ mg/dL (Negative); Specific Grav Ur 1.015 (1.001-1.035); Urobilinogen Urine 0.2 mg/dL (<2.0)
[2022-07-20 14:15] LABS: Bacteria Urine Trace /hpf; Mucus Urine Rare /lpf; Squamous Epithelial Cell Urine Rare /hpf (Few); WBC Urine 21-30 /hpf
[2022-07-20 14:23] LABS: Add Urine Microscopic? YES
--- NOTE | 2022-07-20 14:55 | WPDNEURCNPN ---
Assessment and Plan Assessment and plan (1) Left leg weakness: Code(s): R29.898 - Other symptoms and signs involving the musculoskeletal system Status: Acute Plan 1 possibility of TIA but all the basic evaluation negative she stepped with the left lower extremity forward and was unable to bear weight on her left lower extremity it could be related to diabetic neuropathy with inability to bear weight on 1 leg before she brought the right leg followed. Cervical MRI does not show any evidence of cervical spondylosis or myelopathy brain MRI does not show any stroke we can obtain the MRI of the lumbosacral spine as well to rule out the possibility of lumbar stenosis and if that study is negative she will benefit from the physical therapy to strengthen the quadriceps muscles bilaterally whether she has underlying lumbar plexopathy she will benefit for EMG and nerve conduction study as an outpatient thank Consult date: 07/20/22 Time Seen: 12:00 Reason for consult: fall HPI: Rowena Ramos is a 52 year old female admitted to the hospital through the emergency room with the ongoing history of 1. Bronchial asthma 2. Diabetes mellitus 3. Anxiety with depression. She reported in the emergency room she was stepping up a step she laid her right foot and was unable to bring her left foot forward to continuing stepping upwards and after missing the stab she fell backwards striking the back of her head though she did not become unconscious there was no change in the mental status and she presented to the ER via EMS with cervical collar in place. She has ongoing history of diabetes mellitus and has been taking same a glue tied subcutaneous injections weekly in addition she has ongoing history of as mentioned above diabetes mellitus type 1 uncontrolled she has never smoker never substance user and initial examination in the emergency room was nonfocal CTA of the head was recommended by Dr. Díaz on telephone conversation by the ER physician her initial vital signs were stable so as the CBC and BMP SARS-CoV-2 it and influenza a and B were negative CT scan of the head was negative psoas the cervical spine CT scan chest x-ray and CTA EKG revealed no atrial fibrillation subsequently as mentioned before brain MRI was negative and CTA negative Review of Systems Review of Systems: All systems reviewed & are unremarkable except as noted in HPI and below PMFSH Past Medical History Medical History (Updated 07/18/22 @ 14:59 by Shira Velazquez PA-C) Anxiety Asthma Cervical spine fracture C4-C5 fracture at age 3. No surgical intervention needed. Depression Gastroparesis Irritable bowel syndrome with diarrhea Kidney stone Neuropathy Type 2 diabetes mellitus Surgical History Surgical History (Updated 07/17/22 @ 18:37 by Noris Mesa PA-C) History of section History of cholecystectomy History of cystoscopy History of tonsillectomy Family History Family History Father Diabetes mellitus Cerebrovascular accident Mother Diabetes mellitus Social History Social History (Updated 07/17/22 @ 18:38 by Noris Mesa PA-C) Social History: Code status: Full code. Smoking status: Never smoker Second hand tobacco smoke exposure: No Alcohol intake: never Substance use: never Lack of Transportation: No Lack of Food: Never True Current Housing: I Have Housing Concerned About Future Housing: No Difficulty Paying Gas/Electric Bills: No Difficulty Paying for Meds: No Currently Unemployed: No Education: Bachelor's Degree Difficulty w/ Childcare or Family Care: No Additional living arrangements comments: The patient lives in her own home in [place]. . She has 1 daughter. Additional occupation/education comments: Employed at a local [employer]. Spiritual care concerns: No Meds Home Medications and Allergies Home Med
--- NOTE | 2022-07-20 16:02 | PM.DS ---
DS: Admitting Diagnosis Discharge Date 07/20/2020 Admitting Diagnosis Fall DS: Discharge Diagnosis Discharge Diagnosis (1) Fall from steps: Code(s): W10.9XXA - Fall (on) (from) unspecified stairs and steps, initial encounter Status: Acute Assessment and Plan: Patient fell backwards down steps, reportedly due to leg weakness/heaviness. No loss of consciousness. Denied precipitating symptoms. No injuries noted on head CT. Fall precautions implemented (2) Left leg weakness: Code(s): R29.898 - Other symptoms and signs involving the musculoskeletal system Status: Acute Assessment and Plan: Etiology unclear. Associated with other vague neurological complaints of unclear significance. Head CT and cervical spine CT with no acute findings, CTA with no significant stenosis, and brain MRI is normal. Cervical spine MRI showed mild cervical spondylosis. She was seen in consultation by Neurology during admission. TIA considered per neurology, and therefore patient was started on aspirin daily with Plavix for 6 weeks per Neurology recommendations. She will follow-up with neurology as an outpatient and will consider MRI of the lumbosacral spine if symptoms persist. She will also benefit from EMG and nerve conduction studies as an outpatient. (3) Superficial laceration of scalp: Code(s): S01.01XA - Laceration without foreign body of scalp, initial encounter Status: Acute Assessment and Plan: Secondary to fall as above (4) Type 2 diabetes mellitus: Code(s): E11.9 - Type 2 diabetes mellitus without complications Status: Acute Assessment and Plan: A1c is 5.4. Patient is maintained on home Ozempic. (5) Electrolyte abnormality: Code(s): E87.8 - Other disorders of electrolyte and fluid balance, not elsewhere classified Status: Resolved Assessment and Plan: Potassium and magnesium supplemented during admission and levels normalized (6) UTI (urinary tract infection): Code(s): N39.0 - Urinary tract infection, site not specified Status: Acute Assessment and Plan: Patient developed dysuria and reported symptoms were consistent with prior UTI. UA was slightly abnormal with 1+ leuk esterase and 21-30 WBC. Given her symptoms, she was started on p.o. cefdinir to complete 5 days of antibiotic therapy. Urine culture pending at time of discharge, will monitor results and tailor antibiotics accordingly. Patient is aware that she will be contacted by phone if adjustment to antibiotic regimen is required. DS: Summary Hospital Course Hospital Course: Date of admission: 07/17/2022 Date of discharge: 07/20/2022 Rowena Ramos is a 52-year-old female with a history of anxiety, depression, asthma, cervical spine fracture, type 2 diabetes mellitus with associated gastroparesis and neuropathy, IBS, and kidney stones who presented to the emergency department on 07/17/2022 after suffering a fall down stairs in which she struck her head. She did not have loss of consciousness, alteration of mental status, or any other complaints of injury. On presentation to the emergency department, her vital signs were stable, she was afebrile, laboratory workup unremarkable, head CT and cervical spine CT with no acute findings, CXR unremarkable, and CTA of the brain was also unremarkable. Patient was admitted to the hospitalist service for further evaluation management was seen in consultation by Neurology. Please see above for further details. Patient's leg heaviness improved. She will follow-up with neurology as an outpatient for EMG, NCS, and possible lumbosacral MRI. She will continue with aspirin and Plavix based on Neurology recommendations. She was treated for symptomatic urinary tract infection and culture results will be monitored. Given patient's overall improvement, she felt comfortable with plans for discharge home and was discharged
[2022-07-20 17:15] LABS: Glucose Point of Care 146 mg/dl (65-105)
== END 2022-07-20 18:03 | disposition home or self-care (01) ==
LOC: ANHED 12:27 → ANH2MED 13:52
PROVIDERS: Physician Assistant; Admitting Provider Internal Medicine; Emergency Provider Nurse Practitioner Family; PCP Family Medicine; Visit Provider Physician Assistant
DX: S01.01XA Laceration without foreign body of scalp, initial encounter (principal); W10.9XXA Fall (on) (from) unspecified stairs and steps, initial encounter; R29.898 Other symptoms and signs involving the musculoskeletal system; E11.42 Type 2 diabetes mellitus with diabetic polyneuropathy; E11.43 Type 2 diabetes mellitus with diabetic autonomic (poly)neuropathy; K31.84 Gastroparesis; E87.8 Other disorders of electrolyte and fluid balance, not elsewhere classified; N39.0 Urinary tract infection, site not specified; Z87.442 Personal history of urinary calculi; R51.9 Headache, unspecified; M47.812 Spondylosis without myelopathy or radiculopathy, cervical region; F41.9 Anxiety disorder, unspecified; I51.89 Other ill-defined heart diseases; F32.A Depression, unspecified; J45.909 Unspecified asthma, uncomplicated; I95.1 Orthostatic hypotension; R53.1 Weakness; K58.9 Irritable bowel syndrome, unspecified; R27.0 Ataxia, unspecified; Z20.822 Contact with and (suspected) exposure to COVID-19; I45.10 Unspecified right bundle-branch block; R03.0 Elevated blood-pressure reading, without diagnosis of hypertension; R29.702 NIHSS score 2; Z79.85 Long-term (current) use of injectable non-insulin antidiabetic drugs; Z79.899 Other long term (current) drug therapy; Z83.3 Family history of diabetes mellitus; Z82.3 Family history of stroke
CPT/HCPCS: 36415; 70450; 70496; 70553; 71045; 72125; 72141; 80048; 80053; 80061; 81001; 82040; 82607; 82746; 82948; 83036; 83735; 84443; 84484; 85025; 85027; 85610; 85730; 87086; 87088; 87502; 93005; 93306; 96374; 96375; 96376; 99285; A9270; A9577; G0378; J2270; J2405; J3475; J7030; Q9967; U0003; U0005

== ENCOUNTER 2022-12-21 13:16 | Outpatient (CLI) | payer BC, SELFPAY | END 2022-12-21 13:17 | disposition home or self-care (01) | LOC: ANHAUDIO 13:17 | PROVIDERS: PCP Family Medicine; Visit Provider Otolaryngology | DX: H91.92 Unspecified hearing loss, left ear (principal) | CPT/HCPCS: 92557; 92567 ==

== ENCOUNTER 2023-02-01 10:19 | Emergency (ER) | payer BC, SELFPAY ==
--- NOTE | ~2023-02-01 | XR_ITS ---
EXAMINATION: XR hand RT min 3V DATE: 02/01/2023 10:48 INDICATION: Right hand pain. TECHNIQUE: 3 views of right hand were obtained. COMPARISON: None. FINDINGS: Bone alignment is normal. No fracture. There is mild osteoarthritis of first carpometacarpa l joint. IMPRESSION: 1. Mild osteoarthritis of first carpometacarpal joint. Reviewed, dictated and finalized at location L.
--- NOTE | 2023-02-01 10:24 | ED.UPPEXIN ---
HPI - Extremity Injury (Upper) General Chief Complaint: Extremity Injury, Upper Stated Complaint: fall,rt hand injury Time Seen by Provider: 02/01/23 11:11 Source: patient and RN notes reviewed Mode of arrival: ambulatory Limitations: no limitations History of Present Illness HPI narrative: 52-year-old female presents with concern for right hand pain. Reports yesterday she was gardening when she tripped and fell catching herself on her right hand. She reports pain at the base of the right thumb extending into the 2nd digit and the wrist. She reports bruising on the palmar aspect of the hand. Reports she used ice and ibuprofen complaint: injury to: right and hand Related Data Home Medications Medication Instructions Recorded Confirmed escitalopram oxalate 10 mg tablet 10 mg PO DAILY 11/01/22 02/01/23 (Lexapro) semaglutide 1 mg/dose (4 mg/3 mL) mg subcut 02/01/23 subcutaneous pen injector (Ozempic) Allergies Allergy/AdvReac Type Severity Reaction Status Date / Time No Known Allergies Allergy Verified 02/01/23 10:27 Review of Systems Review of Systems: CONSTITUTIONAL: Denies malaise, chills, sweats, or fever. SKIN: Denies rash or itching, open skin, laceration, abrasion, redness, warmth MUSCULOSKELETAL: Reports right hand pain, swelling, and bruising NEUROLOGIC: Denies numbness, weakness All systems reviewed & are unremarkable except as noted in HPI and below PMFSH Past Medical History Medical History Anxiety Asthma Cervical spine fracture C4-C5 fracture at age 3. No surgical intervention needed. Depression Gastroparesis Irritable bowel syndrome with diarrhea Kidney stone Neuropathy Type 2 diabetes mellitus Surgical History Surgical History History of section History of cholecystectomy History of cystoscopy History of tonsillectomy Family History Family History (Updated 12/20/22 @ 11:29 by Lynsey Vaughn CMA) Father Diabetes mellitus Cerebrovascular accident Mother Diabetes mellitus Sibling Diabetes mellitus Hypertension Other Depression Grandparent Cerebrovascular accident Social History Social History Social History: Code status: Full code. Smoking status: Never smoker Second hand tobacco smoke exposure: No Alcohol intake: current Alcohol use details: occasionally 1 glass of wine Substance use: never Lack of Transportation: No Lack of Food: Never True Current Housing: I Have Housing Concerned About Future Housing: No Difficulty Paying Gas/Electric Bills: YES Difficulty Paying for Meds: YES Currently Unemployed: No Education: Bachelor's Degree Difficulty w/ Childcare or Family Care: No Living arrangements: alone Additional living arrangements comments: The patient lives in her own home in [place]. . She has 1 daughter. Additional occupation/education comments: Employed at a local [employer]. Spiritual care concerns: No Comments At time of signature, agree with nursing past medical, surgical, social and family history. There is no relevant family history pertinent to the presenting complaint Exam Narrative: GENERAL: Well-appearing, well-nourished, and in no acute distress. HEAD: Normocephalic EYES: PERRLA, conjunctivae clear NECK: Supple. CHEST: Speaks in full sentences. No respiratory distress. HEART: Regular rate and rhythm. Normal and equal peripheral pulses. EXTREMITIES: Right hand and digits of hand have normal strength and sensation. 5/5 strength with digit flexion, extension. Range of motion limited in the 2nd digit due to swelling. No clubbing, cyanosis. Tenderness and swelling noted to the 2nd digit, tenderness in bruising noted on the palmar aspect of the hand beneath the 1st digit. skin intact. Normal digital cascade
[2023-02-01 10:26] VITALS: BP 123/86; PULSE 84; RESP 16; TEMP 36.4; O2SAT 99
== END 2023-02-01 11:26 | disposition home or self-care (01) ==
PROVIDERS: Emergency Provider Nurse Practitioner; PCP Family Medicine
DX: S63.91XA Sprain of unspecified part of right wrist and hand, initial encounter (principal); W01.0XXA Fall on same level from slipping, tripping and stumbling without subsequent striking against object, initial encounter; Y93.H2 Activity, gardening and landscaping; J45.909 Unspecified asthma, uncomplicated; E11.40 Type 2 diabetes mellitus with diabetic neuropathy, unspecified; E11.43 Type 2 diabetes mellitus with diabetic autonomic (poly)neuropathy; K31.84 Gastroparesis; F41.9 Anxiety disorder, unspecified; F32.A Depression, unspecified
CPT/HCPCS: 29130; 73130; 99214; G0463

== ENCOUNTER 2023-02-18 11:00 | Outpatient (RCR) | payer BC, SELFPAY | END 2023-02-18 23:59 | disposition home or self-care (01) | LOC: ANHAUDIO 11:00 | PROVIDERS: PCP Family Medicine; Visit Provider Otolaryngology | DX: Z46.1 Encounter for fitting and adjustment of hearing aid (principal) | CPT/HCPCS: 99199; V5261 ==

== ENCOUNTER 2023-07-18 11:26 | Outpatient (RCR) | payer BC, SELFPAY | END 2023-10-16 23:59 | disposition home or self-care (01) | LOC: ANHAUDASC 11:26 | PROVIDERS: PCP Family Medicine; Visit Provider Student in an Organized Health Care Education/Training Program | DX: Z46.1 Encounter for fitting and adjustment of hearing aid (principal) | CPT/HCPCS: 99199 ==